=== PATIENT | female | born 1955 | race Caucasian/White ===

== ENCOUNTER 2020-03-20 09:50 | Emergency (ER) | payer OTHER ==
[~2020-03-20] VITALS: Ht 157.5 cm; Wt 69.4 kg
[2020-03-20] MEDS ORDERED: ONDANSETRON HCL INJ 2MG/ML 2ML 2 MG/ML VIAL ONE (10:06)
[2020-03-20] MEDS ORDERED: KETAMINE HCL INJ 50 MG/ML 10 ML VIAL ONE (10:06)
[2020-03-20] MEDS ORDERED: FENTANYL CITRATE/PF 100MCG/2 ML INJ IV ONE (10:10)
[2020-03-20] MEDS ORDERED: SODIUM CHLORIDE 0.9% 1000ML 1,000 ML ONE (10:11)
[2020-03-20] MEDS ORDERED: FENTANYL CITRATE/PF 100MCG/2 ML INJ ONE (10:11)
[2020-03-20] MEDS ORDERED: BUPIVACAINE HCL 0.5% INJ 30 ML VIAL INJ ONE (10:15)
[2020-03-20] MEDS ORDERED: BUPIVACAINE HCL 0.5% 10ML MPF VIAL INJ ONE (10:22)
[2020-03-20] MEDS ORDERED: FENTANYL 50 MCG/HR PATCH TOP SCH (10:30)
[2020-03-20] MEDS ORDERED: KETAMINE HCL INJ 50 MG/ML 10 ML VIAL IV ONE (10:30)
[2020-03-20] MEDS ORDERED: SODIUM CHLORIDE 0.9% IV SCH (10:30)
[2020-03-20] MEDS ORDERED: HYDROCODON-ACE1 EA11 PO (11:09)
[2020-03-20 11:36] VITALS: BP 111/64
== END 2020-03-20 11:39 | disposition home or self-care (01) ==
LOC: ER 09:54
DX: S92.491A Other fracture of right great toe, initial encounter for closed fracture (principal); X58.XXXA Exposure to other specified factors, initial encounter; Z86.2 Personal history of diseases of the blood and blood-forming organs and certain disorders involving the immune mechanism
CPT/HCPCS: 73660; 99285; J2405; J3010; J7030